=== PATIENT | female | born 1960 | race Two or more races ===

== ENCOUNTER → 2024-07-11 | Day surgery (SDC) | payer MEDICAID ==
[~2024-07-11] VITALS: Ht 154.9 cm; Wt 103.4 kg
[~2024-07-11] MED LIST: ALBUAER3 IN; ASPI81CH59 PO; ATOR20TA PO; FLUT1AER17 IN; GLIP5TAB21 PO; LOSA-533 PO; MONT-8 OR; PROPOFOL 10 MG/ML 20 ML IV ONE; SITA50TA PO; fentaNYL CITRATE 100 MCG/2 ML VL ONE
--- NOTE | 2024-07-11 08:11 | DVHHP2 ---
GI H&P Pre-Op Assessment Date: 07/11/24 Chief complaint: heartburn, epigastric pain HPI: per clinic note Past medical history: per clinic note Past surgical history: per clinic note Family history: per clinic note Physical exam: General: NAD, AAOX3 HEENT: PERRL, no scleral icterus, normal hearing, gums without lesions or bleeding, oropharynx clear without erythema or exudate. Neck: Supple without enlargement of the thyroid, or lymphadenopathy. Chest: Normal size and shape, no tenderness, lung solis clear to auscultation and percussion, nonlabored breathing. Heart: RRR, no murmur Abdomen: non-distended, no tenderness to palpation, +BS, no hepatosplenomegaly Extremities: no edema Neurological: CN II-XII intact, sensation intact in all extremities, 5+ strength in all extremities Skin: No rashes, No jaundice Assessment: - heartburn, epigastric pain Plan: - EGD - Risks (bleeding, infection, perforation, reaction to sedation medications and cardiopulmonary arrest) and benefit of the procedure were explained to patient. Patient agrees to undergo the procedure. GUY VILLANUEVA MD Jul 11, 2024 08:11
[2024-07-11 08:12] VITALS: TEMP 98.4; O2SAT 93
--- NOTE | 2024-07-11 08:13 | DVHDS2 ---
Physician Discharge Progress N Final Diagnosis: gastritis Operations or Procedures: Operations or Procedures EGD with biopsy Condition on Discharge: Good Disposition: Home Discharge Instructions: Diet: Regular Activity: No Restrictions, As Tolerated Medications: resume with previous home medications. Follow Up Care: Discharge Statement: "Patient was advised to return to the ER or call 911 if any headaches, dizziness, shortness of breath, chest pain, abdominal pain, bleeding, fevers, or worsening of medical condition. Patient was counseled about treatment plan, medications, possible side effects, patientverbalized understanding. All questions were answered to the best of my ability. This discharge took greater then 30 minutes in planning, reviewing documentation, counseling the patient, and discussing with other team members." GUY VILLANUEVA MD Jul 11, 2024 08:13
--- NOTE | 2024-07-11 08:13 | DVHOP2 ---
Operative Report DATE OF OPERATION: 07/11/24 PROCEDURE: Upper Endoscopy. PREOPERATIVE INDICATION: The patient is a 63 -year-old female undergoing endoscopy for heartburn and epigastric pain. POSTOPERATIVE DIAGNOSES: 1. Gastritis PROCEDURE PERFORMED BY: Julián August SCOPE: Olympus videoendoscope. ASA CLASS: 3 PREOPERATIVE MEDICATIONS: MAC with Dr Min PROCEDURE IN DETAIL: After obtaining an informed consent, the patient was placed on left lateral decubitus position. The patient was then sedated with the above medications. A bite block was placed between her teeth. The endoscope was then passed through the oropharynx, into the esophagus, and through the stomach and pylorus up to the second and third part of the duodenum. The duodenum was normal in appearance. There was gastritis. Gastric biopsies were obtained with cold biopsy. The GEJ was normal in appearance at 35 cm. The esophagus was normal in appearance. The endoscope was then withdrawn. The patient tolerated the procedure well without difficulty. COMPLICATIONS : None SPECIMENS: Gastric biopsies DISPOSITION: Transfer back to the floor PLAN: 1. Await for biopsy result 2. Continue with omeprazole. JULIÁN AUGUST MD Jul 11, 2024 08:13
[2024-07-11 08:27] VITALS: BP 120/45; PULSE 74; RESP 14; O2SAT 96
== END | disposition home or self-care (01) ==
LOC: GI 07:11
PROVIDERS: ATTEND Internal Medicine Gastroenterology
DX: K29.50 Unspecified chronic gastritis without bleeding (principal); R10.13 Epigastric pain; R12 Heartburn; J45.909 Unspecified asthma, uncomplicated; E11.9 Type 2 diabetes mellitus without complications; E66.9 Obesity, unspecified; K21.9 Gastro-esophageal reflux disease without esophagitis; E78.5 Hyperlipidemia, unspecified; I10 Essential (primary) hypertension; Z79.899 Other long term (current) drug therapy; Z90.710 Acquired absence of both cervix and uterus; Z98.891 History of uterine scar from previous surgery; Z90.49 Acquired absence of other specified parts of digestive tract; Z98.890 Other specified postprocedural states; Z68.41 Body mass index [BMI] 40.0-44.9, adult
CPT/HCPCS: 43239; 82962; 88305; 88312; 88342; J2704; J3010; J7030